=== PATIENT | female | born 1960 | race Caucasian/White ===

== ENCOUNTER 2016-08-21 11:56 | Emergency (ER) | payer OTHER ==
[~2016-08-21] VITALS: Ht 162.6 cm; Wt 73.5 kg
[~2016-08-21 11:56] MED LIST: ACETAMINOPHEN325 M1 PO; AMBIEN 10 MG TA10 MG PO; AMBIEN 5 MG TABL5 M1 PO; AVANDAMET 2 MG1 EAC1 PO; AVINZA 60 MG CA60 M1 PO; AVINZA120 MG PO; AVINZA75 MG PO; CHANTIX1 MG; CLONAZEPAM; COMPAZINE10 M1; CONSTULOSE10 GM/152; CYCLOBENZAPRINE; CYCLOBENZAPRINE5 MG PO; DESYREL150 MG; DESYREL50 MG PO; FLEXERIL; FLEXERIL PO; FLONASE 0.05%50 MCG INH; FLONASE 0.05%50 MCG NASAL; GEODON80 MG PO; HYDROCODON-ACE1 EAC5 PO; HYDROXYZINE HCL25 M1 PO; KEFLEX500 MG PO; LACTULOSE10 GM/152 PO; LACTULOSE20 GM/30 M PO; LASIX 40 MG TAB40 M2 PO; LEVAQUIN 250 M250 MG PO; LEVAQUIN 500 M500 M2 PO; LEVEMIR SUBQ; LISINOPRIL10 MG PO; MEDROLDOSEPACK PO; MORPHINE SULFAT60 M2 PO; MS CONTIN15 MG PO; NAMENDA 10 MG T10 MG; NEURONTIN600 MG; NEURONTIN600 MG PO; NEXIUM; NEXIUM40 MG PO; NORCO 10-325 T1 EACH PO; NORCO 5-325 TA1 EACH PO; NOVOLOG100 UNIT/1 SUBQ; PREDNISONE 10 M10 MG PO; PRESTIQ; PRILOSEC40 MG PO; PRISTIQ100 MG PO; PRISTIQ50 M1 PO; SEROQUEL; SEROQUEL 50 MG50 M1 PO; SEROQUEL 50 MG50 M2 PO; SEROQUEL400 MG PO; TAMSULOSIN HCL0.4 M1 PO; TYLENOL325 MG PO; VENTOLIN HFA 1818 GM INH; VENTOLIN17 GM INH; VISTARIL 25 MG25 M1 PO; ZOCOR; ZOCOR40 MG PO; ZOFRAN ODT4 MG PO; [UNRECOGNIZED DRUG - OTHER]
[2016-08-21 14:06] VITALS: BP 106/82
== END 2016-08-21 14:12 ==
LOC: ER 11:56
DX: S22.32XA Fracture of one rib, left side, initial encounter for closed fracture (principal); F17.210 Nicotine dependence, cigarettes, uncomplicated; F20.9 Schizophrenia, unspecified; E11.9 Type 2 diabetes mellitus without complications; M79.7 Fibromyalgia; E78.5 Hyperlipidemia, unspecified; Z88.6 Allergy status to analgesic agent; Z88.0 Allergy status to penicillin; Z88.2 Allergy status to sulfonamides; Z88.7 Allergy status to serum and vaccine; Z88.8 Allergy status to other drugs, medicaments and biological substances; W01.0XXA Fall on same level from slipping, tripping and stumbling without subsequent striking against object, initial encounter; Y93.89 Activity, other specified; Y92.89 Other specified places as the place of occurrence of the external cause; Y99.9 Unspecified external cause status

== ENCOUNTER 2017-12-03 20:27 | Emergency (ER) | payer OTHER ==
[~2017-12-03] VITALS: Ht 160 cm; Wt 74.8 kg
[2017-12-03 21:14] VITALS: BP 123/66
== END 2017-12-03 22:20 | disposition home or self-care (01) ==
LOC: ER 20:27
DX: S93.401A Sprain of unspecified ligament of right ankle, initial encounter (principal); S60.211A Contusion of right wrist, initial encounter; F17.210 Nicotine dependence, cigarettes, uncomplicated; I95.9 Hypotension, unspecified; E11.9 Type 2 diabetes mellitus without complications; G89.29 Other chronic pain; E78.5 Hyperlipidemia, unspecified; M79.7 Fibromyalgia; Z88.6 Allergy status to analgesic agent; Z88.8 Allergy status to other drugs, medicaments and biological substances; Z88.0 Allergy status to penicillin; Z88.2 Allergy status to sulfonamides; Z88.7 Allergy status to serum and vaccine; Z79.4 Long term (current) use of insulin; W18.39XA Other fall on same level, initial encounter; Y92.89 Other specified places as the place of occurrence of the external cause; Y93.89 Activity, other specified; Y99.8 Other external cause status

== ENCOUNTER 2018-03-11 02:41 | Emergency (ER) | payer OTHER ==
[~2018-03-11] VITALS: Ht 160 cm; Wt 73.5 kg
[2018-03-11] MEDS ORDERED: MELATONIN5 M4 PO (02:48)
[2018-03-11 03:49] VITALS: BP 105/53
== END 2018-03-11 03:51 | disposition home or self-care (01) ==
LOC: ER 02:41
DX: S93.401A Sprain of unspecified ligament of right ankle, initial encounter (principal); W19.XXXA Unspecified fall, initial encounter; Y93.89 Activity, other specified; Y92.89 Other specified places as the place of occurrence of the external cause; Y99.8 Other external cause status; F20.9 Schizophrenia, unspecified; E11.9 Type 2 diabetes mellitus without complications; M79.7 Fibromyalgia; E78.5 Hyperlipidemia, unspecified; G89.29 Other chronic pain; F17.210 Nicotine dependence, cigarettes, uncomplicated; Z88.0 Allergy status to penicillin; Z88.2 Allergy status to sulfonamides; Z88.5 Allergy status to narcotic agent; Z88.6 Allergy status to analgesic agent; Z88.8 Allergy status to other drugs, medicaments and biological substances

== ENCOUNTER 2018-08-15 20:02 | Emergency (ER) | payer OTHER ==
[~2018-08-15] VITALS: Ht 157.5 cm; Wt 73.9 kg
[~2018-08-15 20:02] MED LIST changes: +MELATONIN5 M4 PO
[2018-08-15 21:25] VITALS: BP 111/65
== END 2018-08-15 21:40 | disposition home or self-care (01) ==
LOC: ER 20:02
DX: M25.561 Pain in right knee (principal); M25.562 Pain in left knee; M25.512 Pain in left shoulder; M25.532 Pain in left wrist; F20.9 Schizophrenia, unspecified; G89.29 Other chronic pain; E11.9 Type 2 diabetes mellitus without complications; M79.7 Fibromyalgia; E78.5 Hyperlipidemia, unspecified; F17.210 Nicotine dependence, cigarettes, uncomplicated; Z79.4 Long term (current) use of insulin; Z79.01 Long term (current) use of anticoagulants; Z79.899 Other long term (current) drug therapy; Z88.0 Allergy status to penicillin; Z88.2 Allergy status to sulfonamides; Z88.6 Allergy status to analgesic agent; Z88.7 Allergy status to serum and vaccine; Z88.8 Allergy status to other drugs, medicaments and biological substances; W01.0XXA Fall on same level from slipping, tripping and stumbling without subsequent striking against object, initial encounter; Y93.01 Activity, walking, marching and hiking; Y92.89 Other specified places as the place of occurrence of the external cause; Y99.8 Other external cause status

== ENCOUNTER → 2018-08-30 | Outpatient (CLI) | payer OTHER | LOC: MRI 12:31 | DX: M25.512 Pain in left shoulder (principal); E11.9 Type 2 diabetes mellitus without complications; F17.200 Nicotine dependence, unspecified, uncomplicated; I10 Essential (primary) hypertension ==

== ENCOUNTER 2019-01-15 19:16 | Emergency (ER) | payer OTHER ==
[~2019-01-15] VITALS: Ht 160 cm; Wt 70.3 kg
[2019-01-15 20:09] VITALS: BP 161/77
== END 2019-01-15 20:24 | disposition home or self-care (01) ==
LOC: ER 19:16
DX: S97.81XA Crushing injury of right foot, initial encounter (principal); I95.9 Hypotension, unspecified; E11.9 Type 2 diabetes mellitus without complications; M79.7 Fibromyalgia; G89.29 Other chronic pain; F17.210 Nicotine dependence, cigarettes, uncomplicated; Z88.6 Allergy status to analgesic agent; Z88.8 Allergy status to other drugs, medicaments and biological substances; Z88.0 Allergy status to penicillin; Z88.2 Allergy status to sulfonamides; Z88.7 Allergy status to serum and vaccine; W20.8XXA Other cause of strike by thrown, projected or falling object, initial encounter; Y93.89 Activity, other specified; Y92.89 Other specified places as the place of occurrence of the external cause; Y99.8 Other external cause status

== ENCOUNTER → 2019-06-19 | Outpatient (CLI) | payer OTHER ==
[2019-06-19 11:02] LABS: CREATININE 0.8 mg/dL (0.6-1.0)
== END ==
LOC: CAT 09:45 → LABMALL 09:45
PROVIDERS: Surgery
DX: K42.9 Umbilical hernia without obstruction or gangrene (principal); Z90.49 Acquired absence of other specified parts of digestive tract

== ENCOUNTER 2019-11-23 11:19 | Emergency (ER) | payer OTHER ==
[~2019-11-23] VITALS: Ht 162.6 cm; Wt 69.0 kg
[2019-11-23 11:33] VITALS: BP 108/64
== END 2019-11-23 15:04 | disposition home or self-care (01) ==
LOC: ER 11:19
DX: S80.01XA Contusion of right knee, initial encounter (principal); G89.29 Other chronic pain; E11.9 Type 2 diabetes mellitus without complications; M79.7 Fibromyalgia; E78.5 Hyperlipidemia, unspecified; F17.210 Nicotine dependence, cigarettes, uncomplicated; Z88.6 Allergy status to analgesic agent; Z88.0 Allergy status to penicillin; Z88.2 Allergy status to sulfonamides; Z88.7 Allergy status to serum and vaccine; Z79.4 Long term (current) use of insulin; Z79.899 Other long term (current) drug therapy; Z79.2 Long term (current) use of antibiotics; W18.30XA Fall on same level, unspecified, initial encounter; Y93.89 Activity, other specified; Y92.89 Other specified places as the place of occurrence of the external cause; Y99.9 Unspecified external cause status

== ENCOUNTER → 2019-12-20 | Outpatient (CLI) | payer OTHER | LOC: ULTRA 13:07 | PROVIDERS: ATTEND Nurse Practitioner Family | DX: M79.89 Other specified soft tissue disorders (principal); W19.XXXA Unspecified fall, initial encounter ==

== ENCOUNTER 2020-01-25 11:52 | Emergency (ER) | payer OTHER ==
[~2020-01-25] VITALS: Ht 162.6 cm; Wt 73.5 kg
[2020-01-25 13:05] VITALS: BP 111/79
== END 2020-01-25 13:12 | disposition home or self-care (01) ==
LOC: ER 11:52
DX: S93.601A Unspecified sprain of right foot, initial encounter (principal); E11.9 Type 2 diabetes mellitus without complications; F17.210 Nicotine dependence, cigarettes, uncomplicated; Z79.899 Other long term (current) drug therapy; Z88.6 Allergy status to analgesic agent; Z88.8 Allergy status to other drugs, medicaments and biological substances; Z79.4 Long term (current) use of insulin; Z88.0 Allergy status to penicillin; Z88.1 Allergy status to other antibiotic agents; Z88.7 Allergy status to serum and vaccine; W19.XXXA Unspecified fall, initial encounter; Y93.89 Activity, other specified; Y92.89 Other specified places as the place of occurrence of the external cause; Y99.8 Other external cause status

== ENCOUNTER 2020-03-13 16:58 | Emergency (ER) | payer OTHER ==
[~2020-03-13] VITALS: Ht 162.6 cm; Wt 73.5 kg
[2020-03-13 18:39] VITALS: BP 161/103
== END 2020-03-13 18:55 | disposition home or self-care (01) ==
LOC: ER 16:58
DX: M25.532 Pain in left wrist (principal); M25.572 Pain in left ankle and joints of left foot; M79.672 Pain in left foot; M79.642 Pain in left hand; E11.9 Type 2 diabetes mellitus without complications; F17.210 Nicotine dependence, cigarettes, uncomplicated; Z79.4 Long term (current) use of insulin; Z79.899 Other long term (current) drug therapy; Z88.0 Allergy status to penicillin; Z88.2 Allergy status to sulfonamides; Z88.5 Allergy status to narcotic agent; Z88.6 Allergy status to analgesic agent; Z88.8 Allergy status to other drugs, medicaments and biological substances; Z88.1 Allergy status to other antibiotic agents; W01.0XXA Fall on same level from slipping, tripping and stumbling without subsequent striking against object, initial encounter; Y93.89 Activity, other specified; Y92.89 Other specified places as the place of occurrence of the external cause; Y99.8 Other external cause status

== ENCOUNTER 2021-04-18 18:09 | Inpatient (IN) | payer OTHER ==
[~2021-04-18] VITALS: Ht 170.2 cm; Wt 70.3 kg
[2021-04-18 18:12] VITALS: BP 74/44
[2021-04-18 19:22] LABS: ABSOLUTE NEUTROPHILS 6.6 thou/uL (1.4-8.2); BASOPHILS 0.7 % (0.0-2.0); EOSINOPHILS 0.5 % (0.0-3.0); HEMATOCRIT 42.7 % (37.0-47.0); HEMOGLOBIN 14.7 gm/dL (12.0-15.0); LYMPHOCYTES 28.3 % (24.0-44.0); MCH 31.7 pg (26.0-34.0); MCHC 34.3 g/dL (28.0-37.0); MCV 92.3 fL (80.0-100.0); MONOCYTES 7.2 % (1.0-8.0); PLATELET COUNT 147 thou/uL (150-400); POLYS 63.3 % (36.0-66.0); RBC 4.63 mil/uL (4.20-5.00); RDW 13.6 % (10.5-14.5); WBC 10.4 thou/uL (4.0-11.0)
[2021-04-18 19:36] LABS: ANION GAP 10 mmol/L (7-16); BUN 30 mg/dL (7-18); CALCIUM 9.8 mg/dL (8.5-10.1); CHLORIDE 98 mmol/L (98-107); CO2 24 mmol/L (21-32); CREATININE 1.7 mg/dL (0.6-1.0); GLUCOSE 219 mg/dL (74-106); SODIUM 132 mmol/L (136-145)
[2021-04-18 19:46] LABS: ALBUMIN 3.8 g/dL (3.4-5.0); SGOT 48 U/L (15-37); SGPT 74 U/L (14-59); TOTAL BILIRUBIN 0.4 mg/dL (0.2-1.0); TOTAL PROTEIN 7.6 g/dL (6.4-8.2)
[2021-04-18 19:47] LABS: POTASSIUM 5.3 mmol/L (3.5-5.1)
--- NOTE | 2021-04-18 21:20 | NUR ---
SPOKE WITH PT SON SEYMOUR [phone], UPDATE TO ADMISSION AND PT STATUS
[2021-04-18 21:25] LABS: URINE BILIRUBIN NEGATIVE (Negative); URINE BLOOD TRACE (Negative); URINE CLARITY CLEAR; URINE COLOR YELLOW; URINE GLUCOSE-RANDOM* 3+ (Negative); URINE KETONES NEGATIVE (Negative); URINE LEUKOCYTES-REFLEX NEGATIVE (Negative); URINE NITRITE-REFLEX NEGATIVE (Negative); URINE PROTEIN (DIPSTICK) NEGATIVE (Negative); URINE SPECIFIC GRAVITY 1.015 (1.005-1.035); URINE UROBILINOGEN 0.2 E.U./dl (0.2-1.0)
[2021-04-19] VITALS (8 sets, daily range): BP systolic 113–148; BP diastolic 56–92
--- NOTE | 2021-04-19 01:36 | NUR ---
This RN admitted patient to room 200 at 0045. Patient stabilized, only complaint from patient is chronic pain. This RN spoke to son, Marvel, who is medical DPOA at 0120 to discuss patient status. Security code given. This RN spoke to Alesia at 0110 to discuss pain medication. Orders received, will implement and continue to monitor.
[2021-04-19 07:27] LABS: HEMATOCRIT 41.6 % (37.0-47.0); HEMOGLOBIN 13.9 gm/dL (12.0-15.0); MCHC 33.3 g/dL (28.0-37.0); MCV 93.2 fL (80.0-100.0); RBC 4.47 mil/uL (4.20-5.00); RDW 13.3 % (10.5-14.5)
[2021-04-19 07:40] LABS: CREATININE 0.9 mg/dL (0.6-1.0)
[2021-04-19 07:41] LABS: POTASSIUM 3.9 mmol/L (3.5-5.1)
--- NOTE | 2021-04-19 10:31 | EKG ---
[address] [place] [address] ELECTROCARDIOGRAM REPORT Name: MAR ORTA Room #: 200-I ADM IN M.R.#: [id number] Admission: 04/18/21 Attend Phys: eSrgio Potter MD Discharge: Date of : 64 Report #: [id number] Formerly [facility] ED Test Date: 2021-04-18 Test Time: 18:36:33 Pat Name: MAR ORTA Department: Room: 200 Gender: F Wax Molder: NIHARIKA : 1960 Requested By: Javier Petersen Order Number: [id number] MD: Jose Shi Measurements Intervals Barton Rate: 84 P: 10 OR: 153 QRS: 22 QRSD: 89 T: 67 QT: 466 QTc: 551 Interpretive Statements Sinus rhythm Prolonged QT interval Compared to ECG 06/24/2014 22:29:11 Prolonged QT interval now present Left ventricular hypertrophy no longer present Electronically Signed On 04-19-2021 10:31:03 BUSINESS DEVELOPMENT RECRUITER by Jose Shi [email or web address] <ELECTRONICALLY SIGNED> By: Jose Shi MD 04/19/21 1031 1836 1836 Jose Shi MD /PAULA
--- NOTE | 2021-04-19 11:13 | NUR ---
Assumed care of pt this AM. Pt is A&O x4, on 2L NC, SA on the monitor. Pt c/o chronic pain which is 12/30. Med rec completed. Pt has joyce which is patent & draining. Will continue to assess pt needs throughout shift.
--- NOTE | 2021-04-20 01:21 | NUR ---
UPON SHIFT REPORT, PT REPORTING 8/10 PAIN IN BLADDER, BACK, AND BLE. PT RECEIVING PRN PO NORCO Q4HR, LAST GIVEN AT 1837. UPON SHIFT ASSESSMENT, PT CONTINUES TO REPORT 8/10 PAIN IN BLADDER, BACK, AND BLE. PT RECEIVING SCHEDULED PO MORPHINE BID WITH PRN PO NORCO Q4HR AVAILABLE. PT DENIES SOB WHILE ON 2L O2 VIA NC, NO DESATURATIONS NOTED. PT TOLERATING PO INTAKE OF FLUIDS AND CARB CONTROLLED DIET WITHOUT ISSUE. PT WITHOUT NAUSEA OR EMESIS. PT VOIDINIG PER MEJÍA CATHETER, LIGHT YELLOW URINE OBSERVED. PT RESTING IN BED THROUGHOUT SHIFT, NOTED TO SHIFT INDEPENDENTLY, FREQUENT REPOSITIONING ENCOURAGED WHILE IN BED. SENSATION INTACT, CAPILLARY REFILL LESS THAN 3SEC, PERIPHERAL PULSES PALPABLE IN ALL EXTREMITIES. PT ENCOURAGED TO NOTIFY STAFF FOR ALL NEEDS, CALL LIGHT WITHIN REACH, BED ALARM ON, BED LOCKED IN LOWEST POSITION, FREQUENT MONITORING WILL CONTINUE.
[2021-04-20 03:54] VITALS: BP 119/63
[2021-04-20 07:00] VITALS: BP 148/86
[2021-04-20 08:05] VITALS: BP 148/86
--- NOTE | 2021-04-20 10:02 | NUR ---
Assumed care of pt this AM. Pt is A&O x4, on RA, SA on the monitor. Pt c/o chronic back pain & bladder pain, believed to be related to cook cath. Cook removed per Dr. yoon. Plan for discharge today.
[2021-04-20] MEDS ORDERED: LEVOFLOXACIN500 MG PO (10:48)
--- NOTE | 2021-04-20 11:14 | NUR ---
Pt dcing home today. She is up with supervision and reports that her son is at home and can help get her into the apt. She will need a cab ride and utilizes [facility] transport for medical appts. Cab voucher provided. Pt to dc home after last iv atb dose. Dc home on po atbs. She has walker and w/c at home and gets [place] medicaid. No other dc needs indicated. Pt has alerted her son to her dc home today.
--- NOTE | 2021-04-20 14:34 | NUR ---
Unit sec notes pt left ID (drivers lic) in the room and found by housekeeping. Pt and son do not have transport to come pick it up. [employer] contacted for delievery to the home address this afternoon. Tracking #[id number].
== END 2021-04-20 14:33 | disposition home or self-care (01) | DRG 871 ==
LOC: ER 18:09 → 2N 22:46 → EROBS 22:46 → 2N 04-19 00:37
PROVIDERS: Emergency Medicine; Nurse Practitioner Family; ADMIT Internal Medicine; ATTEND Internal Medicine
DX: A41.9 Sepsis, unspecified organism (principal); J96.01 Acute respiratory failure with hypoxia; G93.41 Metabolic encephalopathy; J18.9 Pneumonia, unspecified organism; N17.9 Acute kidney failure, unspecified; I95.9 Hypotension, unspecified; E87.5 Hyperkalemia; G89.4 Chronic pain syndrome; F20.9 Schizophrenia, unspecified; I10 Essential (primary) hypertension; E11.40 Type 2 diabetes mellitus with diabetic neuropathy, unspecified; E11.65 Type 2 diabetes mellitus with hyperglycemia; Z79.4 Long term (current) use of insulin; R74.01 Elevation of levels of liver transaminase levels; D69.6 Thrombocytopenia, unspecified; Z20.822 Contact with and (suspected) exposure to COVID-19; F17.210 Nicotine dependence, cigarettes, uncomplicated; Z87.442 Personal history of urinary calculi; Z90.49 Acquired absence of other specified parts of digestive tract; Z90.710 Acquired absence of both cervix and uterus; Z82.49 Family history of ischemic heart disease and other diseases of the circulatory system; Z88.0 Allergy status to penicillin; Z88.8 Allergy status to other drugs, medicaments and biological substances; Z88.2 Allergy status to sulfonamides
CPT/HCPCS: 10081